=== PATIENT | female | born 1950 | race Native Hawaiian/Other Pacific Islander ===

== ENCOUNTER 2018-04-18 06:01 | Day surgery (SDC) | payer MEDICARE ==
[2018-04-15 08:14] VITALS: BMI 21.4
[2018-04-18 07:00] LABS: BASO # 0.09 K/mm3 (0.0-2.0); BASO % 1.5 % (0.0-3.0); EOS # 0.3 (0.0-0.7); EOS % 4.9 % (1.5-5.0); LYMPH # 1.8 (1.2-3.4); LYMPH % 28.4 % (22.0-35.0); MEAN CORPUSCULAR HEMOGLOBIN 27.7 pg (25.0-35.0); MEAN CORPUSCULAR HGB CONC 32.6 g/dl (31.0-37.0); MEAN PLATELET VOLUME 8.1 fl (7.0-11.0); MONO # 0.4 (0.1-0.6); MONO % 6.2 % (1.0-6.0); RBC 5.06 10^6/uL (3.5-6.1); RED CELL DISTRIBUTION WIDTH 13.9 % (11.5-14.5); WHITE BLOOD COUNT 6.2 10^3/uL (4.5-11.0)
[2018-04-18] MEDS ORDERED: Lidocaine 2% Inj (20ml) ONE (07:03)
[2018-04-18] MEDS ORDERED: Phenylephrine 10 mg/ml Inj ONE (07:04)
[2018-04-18] MEDS ORDERED: Iohexol 350mgl/ml 50 ML ONE (07:06)
[2018-04-18] MEDS ORDERED: Iodixanol 320 MG/ML 200 ML BOTTLE IV ONE (07:06)
[2018-04-18] MEDS ORDERED: Iodixanol 320 MG/ML 100 ML BOTTLE IV ONE (07:06)
[2018-04-18] MEDS ORDERED: Nitroglycerin 50mg in D5W 50 MG/250 ML BOTTLE IV ONE (07:07)
[2018-04-18 07:18] LABS: INR 1.04; PARTIAL THROMBOPLASTIN TIME 38.1 Seconds (26.9-38.3); PROTHROMBIN TIME 11.7 SECONDS (9.4-12.5)
[2018-04-18 07:49] LABS: BLOOD UREA NITROGEN 18 mg/dL (7-21); CALCIUM 9.7 mg/dL (8.4-10.5); GFR NON-AFRICAN AMERICAN > 60
[2018-04-18] MEDS ORDERED: Midazolam 2 MG/2 ML VIAL ONE ×2 (07:58→08:03)
[2018-04-18] MEDS ORDERED: Naloxone 0.4 mg/ml Inj (Adult) ONE (08:27)
[2018-04-18] MEDS ORDERED: Sodium Chloride 0.9% 1,000 ML IV SCH (09:00)
--- NOTE | 2018-04-18 11:23 | CARDCATH ---
PROCEDURE DATE: 04/18/2018 CARDIAC CATH AND PTCA HISTORY: The patient is a 67-year-old woman with a history of diabetes mellitus and hypothyroidism who presents with recurrent angina as well as an abnormal stress test. Because of this, cardiac catheterization was recommended. PROCEDURE: Left heart catheterization with coronary arteriography and left ventriculogram followed by percutaneous transluminal coronary angioplasty and stent of an left anterior descending as well as supra-aortic valvular injection. The right femoral artery was cannulated with 6-Kiswahili sheath. There were no complications. I performed moderate sedation which included the presence of an independent trained observer that assisted in monitoring the patient's level of consciousness and physiologic status. After administration of Versed and fentanyl, my intra-service time was 30 minutes. The findings on catheterization revealed a right dominant circulation. The RCA revealed diffuse intimal irregularities without significant stenosis. The left main artery was unremarkable. The LAD revealed a long 80% stenosis in the midportion. The diagonal vessels revealed intimal irregularities without critical lesions. The circumflex artery and obtuse marginal branches were free of significant disease. LV function was viewed in the CARDENAS projection. In the CARDENAS projection, wall motion was normal. EF was approximately 60% to 65%. Supra-aortic valvular injection revealed no aortic insufficiency. The patient was started on intravenous Angiomax on the fluoroscopic guide, a guiding catheter was placed in the ostium of the left main artery and 0.014 ATW wire was used to cross the LAD lesion. Prior to the angioplasty, 100 mcg of IC nitroglycerin was given which showed no change in the caliber of the vessel. A 2.0 balloon was utilized to pre-dilate the lesion at 8 atmospheres of pressure. This was followed by implantation of a 2.5 x 18 mm drug-eluting stent which was deployed at 14 atmospheres of pressure. Repeat coronary arteriography revealed an excellent result with no residual stenosis and BASSAM III flow. Angio-Seal was used to close the femoral artery site. The patient tolerated the procedure well. In summary, the procedure was a successful PTCA and stent of a long critical mid LAD stenosis of 80%. Cardiac catheterization revealed single-vessel CAD, normal LV function. Given these findings, the patient will need to remain on aspirin indefinitely and Plavix for at least a year and undergo a strict cardiac risk reduction program. Kaushik Muñoz MD [facility] # [id number]
[2018-04-18] MEDS ORDERED: Oxycodone/Acetaminophen 5/325 mg Tab PO ONE (12:18)
--- NOTE | 2018-04-18 12:57 | CARD ---
APPROVED REPORT Date of service: 04/18/2018 EKG Measurement Heart [id number] <Conclusion> Atrial fibrillation with slow ventricular response Right axis deviation Pulmonary disease pattern Nonspecific ST abnormality Abnormal ECG
[2018-04-18] MEDS: Insulin Reg-LOW-Coverage SC SCH ×2 (17:23→21:51)
[2018-04-19 01:50] VITALS: RESP 20
[2018-04-19] MEDS ORDERED: Levothyroxine 75 MCG TAB PO SCH (06:00)
[2018-04-19 07:06] VITALS: BP 112/53; PULSE 64; TEMP 97.9; O2SAT 97
[2018-04-19] MEDS: Insulin Reg-LOW-Coverage SC SCH (08:33)
[2018-04-19 08:35] LABS: BASO # 0.03 K/mm3 (0.0-2.0); BASO % 0.5 % (0.0-3.0); EOS # 0.2 (0.0-0.7); EOS % 3.8 % (1.5-5.0); LYMPH # 1.6 (1.2-3.4); LYMPH % 26.5 % (22.0-35.0); MEAN CELL VOLUME 85.7 fl (80.0-105.0); MEAN CORPUSCULAR HEMOGLOBIN 27.4 pg (25.0-35.0); MEAN PLATELET VOLUME 8.4 fl (7.0-11.0); MONO # 0.3 (0.1-0.6); MONO % 4.1 % (1.0-6.0); RBC 4.74 10^6/uL (3.5-6.1)
[2018-04-19 09:00] LABS: BLOOD UREA NITROGEN 13 mg/dL (7-21); CALCIUM 9.5 mg/dL (8.4-10.5); GFR NON-AFRICAN AMERICAN > 60
--- NOTE | 2018-04-19 10:35 | PN ---
DATE: 04/19/2018 CARDIOLOGY FOLLOWUP SUBJECTIVE: The patient is status post PTCA and stent of the LAD. No issues noted. PHYSICAL EXAMINATION: VITAL SIGNS: Blood pressure 112/53, the heart rates in the 60s. NECK: Negative JVD. LUNGS: Without rales. HEART: With S1, S2. EXTREMITIES: Without edema. LABORATORY DATA: Hemoglobin is 13. Chemistries, BUN and creatinine are unremarkable. IMPRESSION: 1. Stable post percutaneous transluminal coronary angioplasty and stent of an left anterior descending artery. 2. Hypercholesterolemia. 3. Diabetes mellitus. 4. Hypothyroidism. PLAN: Given these findings, the patient can be discharged today. The patient will continue on aspirin and Plavix with Plavix for least a year . Followup instructions have been given to the patient in detail. Kaushik Muñzo MD
--- NOTE | 2018-04-19 20:07 | CARD ---
APPROVED REPORT Date of service: 04/19/2018 EKG Measurement Heart [id number] 150P-9 [id number] <Conclusion> Sinus bradycardia Right superior axis deviation Low voltage QRS Abnormal ECG
== END 2018-04-19 11:00 | disposition home or self-care (01) ==
LOC: CATH 06:01 → 2RSO 10:41 → CATH 04-19 11:00
PROVIDERS: ATTEND Internal Medicine Cardiovascular Disease
DX: I25.110 Atherosclerotic heart disease of native coronary artery with unstable angina pectoris (principal); I10 Essential (primary) hypertension; I48.91 Unspecified atrial fibrillation; E03.9 Hypothyroidism, unspecified; E11.9 Type 2 diabetes mellitus without complications; E78.00 Pure hypercholesterolemia, unspecified; R94.39 Abnormal result of other cardiovascular function study
CPT/HCPCS: 36415 ×2; 80048 ×2; 82948 ×2; 85025 ×2; 85610; 85730; 86850; 86900; 93005; 93458; 99152; 99153; C1725; C1760; C1769 ×2; C1874; C1887; C2629; C9600; J0583; J1644; J2250; J2310; J3010; J7030; Q9966; Q9967